=== PATIENT | female | born 1965 | race Caucasian/White ===

== ENCOUNTER 2018-08-16 08:28 | Day surgery (SDC) | payer OTHER ==
[~2018-08-16] VITALS: Ht 157.5 cm; Wt 109.8 kg
[~2018-08-16 08:28] MED LIST: CEFAZOLIN SOD 1 GM/ ISO 50 ML PREMIX IV ONE
[2018-08-16] MEDS ORDERED: fentaNYL CITRATE/PF 100 MCG/2 ML AMP IVP ONE (12:20)
[2018-08-16] MEDS ORDERED: DEXAMETHASONE SOD PHOSPHATE 4 MG/ML VIAL IVP ONE (12:20)
[2018-08-16] MEDS ORDERED: LR 1,000 ML IV.SOLN IV ONE (12:20)
[2018-08-16] MEDS ORDERED: KETOROLAC TROMETHAMINE 30 MG VIAL IVP ONE (12:20)
[2018-08-16] MEDS ORDERED: SEVOFLURANE 15 MIN GAS INH ONE (12:20)
[2018-08-16] MEDS ORDERED: NEOSTIGMINE METHYLSULFATE 1 MG/ML, 10 ML VIAL IVP ONE (12:20)
[2018-08-16] MEDS ORDERED: PROPOFOL 200MG/ 20ML VIAL (DIPRIVAN) IV ONE (12:20)
[2018-08-16] MEDS ORDERED: ROCURONIUM BROMIDE 10 MG/ML (ZEMURON) IV ONE (12:20)
[2018-08-16] MEDS ORDERED: LIDOCAINE 2%, 20 ML MDV INJ ONE (12:20)
[2018-08-16] MEDS ORDERED: MIDAZOLAM HCL 5 MG/5 ML VIAL IVP ONE (12:20)
[2018-08-16] MEDS ORDERED: NS IRRIG SOLN 1000 ML IR ONE (12:20)
[2018-08-16] MEDS ORDERED: GLYCOPYRROLATE 0.2 MG/ML VIAL IJ ONE (12:20)
[2018-08-16] MEDS ORDERED: ONDANSETRON HCL 4 MG/2 ML VIAL IVP PRN ×2 (13:30→15:15)
[2018-08-16] MEDS ORDERED: KETOROLAC TROMETHAMINE 30 MG VIAL IVP PRN (13:30)
[2018-08-16] MEDS ORDERED: fentaNYL CITRATE/PF 100 MCG/2 ML AMP IVP PRN ×2 (13:30)
[2018-08-16] MEDS ORDERED: IBUPROFEN 800 MG TABLET PO PRN (15:15)
[2018-08-16] MEDS ORDERED: OXYCODONE/ACETAMINOPHEN 5-325 TABLET PO PRN ×2 (15:15)
[2018-08-16] MEDS ORDERED: KETOROLAC TROMETHAMINE 30 MG VIAL ONE (16:02)
[2018-08-16 17:51] VITALS: BP_SYST 105
== END 2018-08-16 17:45 | disposition home or self-care (01) ==
LOC: SDS 08:28 → SMU 08:29 → SDS 17:45
PROVIDERS: ATTEND Obstetrics & Gynecology
DX: N84.0 Polyp of corpus uteri (principal); N83.8 Other noninflammatory disorders of ovary, fallopian tube and broad ligament; Z79.899 Other long term (current) drug therapy; Z98.890 Other specified postprocedural states; Z68.41 Body mass index [BMI] 40.0-44.9, adult; Z82.49 Family history of ischemic heart disease and other diseases of the circulatory system; Z83.3 Family history of diabetes mellitus; Z80.3 Family history of malignant neoplasm of breast; I10 Essential (primary) hypertension; E66.01 Morbid (severe) obesity due to excess calories; G47.33 Obstructive sleep apnea (adult) (pediatric); K58.9 Irritable bowel syndrome, unspecified; Z82.0 Family history of epilepsy and other diseases of the nervous system; M54.5 Low back pain
CPT/HCPCS: 36415; 58558; 58661; 86886; 86900; 86901; 88305; C1727; C1782; J0690; J1100; J1885; J2001; J2250; J2704; J2710; J3010; J3490; J7120

== ENCOUNTER 2022-04-17 06:12 | Day surgery (SDC) | payer OTHER ==
[~2022-04-17] VITALS: Ht 157.5 cm; Wt 90.7 kg
[2022-04-17] MEDS ORDERED: SIMETHICONE 40 MG/0.6 ML ML ONE (07:39)
[2022-04-17] MEDS ORDERED: MEPERIDINE 100 MG INJ. 100 MG/ML VIAL ONE (07:39)
[2022-04-17] MEDS ORDERED: MIDAZOLAM HCL 5 MG/5 ML VIAL ONE (07:40)
[2022-04-17 14:42] VITALS: BP_SYST 135
== END 2022-04-17 10:10 | disposition home or self-care (01) ==
LOC: SDS 06:12 → SMU 06:13 → SDS 10:10
PROVIDERS: ATTEND Internal Medicine
DX: Z12.11 Encounter for screening for malignant neoplasm of colon (principal); K57.30 Diverticulosis of large intestine without perforation or abscess without bleeding; K64.8 Other hemorrhoids; K63.5 Polyp of colon; I10 Essential (primary) hypertension; Z79.899 Other long term (current) drug therapy; Z20.822 Contact with and (suspected) exposure to COVID-19
CPT/HCPCS: 36415 ×2; 45385; 87426; 88305; 99152; U0003; J2250; J2175

== ENCOUNTER 2023-12-31 10:26 | Day surgery (SDC) | payer OTHER ==
[~2023-12-31] VITALS: Ht 157.5 cm; Wt 93.0 kg
[2023-12-31] MEDS ORDERED: WATER FOR IRRIGATION,STERILE 1,000 ML IRRIG.SOLN IR ONE (13:00)
[2023-12-31] MEDS ORDERED: NS IRRIG SOLN 1000 ML IR ONE (13:00)
[2023-12-31] MEDS ORDERED: ONDANSETRON HCL 4 MG/2 ML VIAL ONE (13:00)
[2023-12-31] MEDS ORDERED: LIDOCAINE MPF 2% 20 MG/1 ML, 5 ML VIAL INH ONE (13:00)
[2023-12-31] MEDS ORDERED: SUCCINYLCHOLINE CHLORIDE 20 MG/ML(QUELICIN) ONE (13:00)
[2023-12-31] MEDS ORDERED: PROPOFOL 200MG/ 20ML VIAL (DIPRIVAN) IV ONE (13:00)
[2023-12-31] MEDS ORDERED: LR 1,000 ML IV.SOLN IV ONE (13:00)
[2023-12-31] MEDS ORDERED: METOCLOPRAMIDE HCL 10 MG/2 ML VIAL ONE (13:00)
[2023-12-31] MEDS ORDERED: SEVOFLURANE 15 MIN GAS INH ONE (13:00)
[2023-12-31] MEDS ORDERED: fentaNYL CITRATE/PF 100 MCG/2 ML AMP ONE (13:15)
[2023-12-31] MEDS ORDERED: MIDAZOLAM HCL 2 MG/2 ML VIAL (VERSED) ONE (13:16)
[2023-12-31] MEDS ORDERED: LABETALOL 100 MG/ 20ML VIAL IVP PRN (13:45)
[2023-12-31] MEDS ORDERED: ONDANSETRON HCL 4 MG/2 ML VIAL IVP PRN (13:45)
[2023-12-31] MEDS ORDERED: ePHEDrine sulfate 50 MG/ML VIAL IVP PRN (13:45)
[2023-12-31] MEDS ORDERED: METOCLOPRAMIDE HCL 10 MG/2 ML VIAL IVP PRN (13:45)
[2023-12-31] MEDS ORDERED: HYDROmorphone 1 MG/ML INJ. CARTRIDGE IVP PRN ×3 (13:45)
[2023-12-31 15:02] VITALS: O2SAT 99
[2023-12-31 18:42] VITALS: BP_SYST 133; PULSE 66; RESP 20
== END 2023-12-31 15:32 | disposition home or self-care (01) ==
LOC: SDS 10:26 → SMU 10:26 → SDS 15:32
PROVIDERS: ATTEND Obstetrics & Gynecology
DX: N95.0 Postmenopausal bleeding (principal); N85.8 Other specified noninflammatory disorders of uterus; I10 Essential (primary) hypertension; G47.33 Obstructive sleep apnea (adult) (pediatric); E66.9 Obesity, unspecified; Z68.37 Body mass index [BMI] 37.0-37.9, adult; Z98.890 Other specified postprocedural states; Z91.011 Allergy to milk products; Z79.899 Other long term (current) drug therapy
CPT/HCPCS: 87081; 58558; 88305; J2765; J3465; J2405; J2704; J0330; J3010; J7120

== ENCOUNTER 2024-02-26 17:56 | Emergency (ER) | payer OTHER ==
[~2024-02-26] VITALS: Ht 157.5 cm; Wt 93.0 kg
[2024-02-26 18:15] VITALS: BP_SYST 121; PULSE 73; RESP 18; TEMP 97.9; O2SAT 100
[2024-02-26] MEDS ORDERED: IOHEXOL 300 mgI/mL, 50 mL INFUS..BTL IV ONE (19:38)
[2024-02-26 20:11] LABS: BASOPHILS # (AUTO) 0.1 K/uL (0.0-0.2); BASOPHILS % (AUTO) 0.7 % (0.0-2.0); EOSINOPHILS # (AUTO) 0.3 K/uL (0.0-0.4); EOSINOPHILS % (AUTO) 2.8 % (0.0-4.0); HEMOGLOBIN 11.9 g/dL (12.0-16.0); LYMPHOCYTES # (AUTO) 3.4 K/uL (1.0-5.5); LYMPHOCYTES % (AUTO) 37.3 % (20.5-51.5); MEAN CORPUSCULAR HEMOGLOBIN 31 pg (27-31); MEAN CORPUSCULAR HGB CONC 34 % (32-36); MEAN CORPUSCULAR VOLUME 90 fL (79.0-98.0); MONOCYTES # (AUTO) 0.5 K/uL (0.0-1.0); MONOCYTES % (AUTO) 5.6 % (1.7-9.3); NEUTROPHILS # (AUTO) 4.9 K/uL (1.8-7.7); NEUTROPHILS % (AUTO) 53.6 % (40.0-70.0); PLATELET COUNT (AUTO) 289 K/uL (130-430); RED CELL DISTRIBUTION WIDTH 14.5 % (9.0-15.0); WHITE BLOOD COUNT (AUTO) 9.2 K/uL (4.8-10.8)
[2024-02-26 20:21] LABS: ALBUMIN 3.5 g/dL (3.4-4.8); CALCIUM 9.3 mg/dL (8.4-11.0); CREATININE 0.88 mg/dL (0.55-1.30); POTASSIUM 4.1 mmol/L (3.5-5.1); TOTAL BILIRUBIN 0.2 mg/dL (0.0-1.0); TOTAL PROTEIN, SERUM 7.3 g/dL (6.4-8.3)
[2024-02-26 20:28] LABS: BLOOD GAS BASE EXCESS -3.5 mmol/L (-2.0-3.0); BLOOD GAS HCO3 20.5 mmol/L (21.0-28.0); BLOOD GAS PCO2 33.5 mmHg (32.0-45.0); BLOOD GAS PH 7.404 (7.350-7.450); BLOOD GAS PO2 96.2 mmHg (83.0-108.0)
[2024-02-26 20:29] LABS: ABG O2 SAT% ESTIMATE 97.4 % (94.0-98.0); FRACTIONATED INSPIRED OXYGEN 0.21 % (0.21-100.00)
[2024-02-26 23:21] VITALS: BP_SYST 158; PULSE 67; RESP 17; TEMP 98.2; O2SAT 99
== END 2024-02-26 23:21 | disposition home or self-care (01) ==
LOC: SED 17:56
DX: J98.11 Atelectasis (principal); R06.02 Shortness of breath; R22.43 Localized swelling, mass and lump, lower limb, bilateral; R07.89 Other chest pain; M54.50 Low back pain, unspecified; I10 Essential (primary) hypertension; Z90.710 Acquired absence of both cervix and uterus
CPT/HCPCS: 99285; 93970; 71275; 71045; 80053; 85025; 85379; 36415; 36600; 82803; Q9967